=== PATIENT | male | born 1945 | race Caucasian/White ===

== ENCOUNTER 2020-11-05 17:18 | Emergency (ER) | payer SELFPAY ==
--- NOTE | 2020-11-05 19:24 | RAD REPORT ---
EXAM DESCRIPTION: CT - Stone Protocol - 11/05/2020 7:01 pm CLINICAL HISTORY: Flank pain. FLANK PAIN COMPARISON: No comparisons TECHNIQUE: Axial images were obtained without oral or IV contrast. Lack of contrast limits solid org an and vascular assessment. The [id number] spans the entirety of the system partially obscuring uppermost abdomen and lung bases. Coronal reformatted images were obtained and reviewed. All CT scans are performed using dose optimization technique as appropriate and may include automated exposure control or mA/KV adjustment according to patient size. FINDINGS: Severe emphysematous changes are present in both lung bases. Small hiatal hernia is presen t. Imaged portions of the liver and spleen show no suspicious findings on non-contrast imaging. Pancreas appears unremarkable.Right adrenal gland is normal. Left adrenal gland contains a 3 cm mass, nonspec ific. No pathologic lymphadenopathy in the abdomen or pelvis. Large right renal cyst is present measuring 6 cm. Stones are present in the calices of both kidneys. There is mild left hydronephrosis caused by a 6 mm stone at the left UPJ. The transverse colon appears thickened suggesting a colitis. Ascending colon appears distended with a ir including the cecum which measures up to 8 cm. Sigmoid diverticulosis is present without diverticu litis. The appendix is not identified as a discrete structure, however, no secondary findings of appe ndicitis are identified. Aortoiliac atherosclerosis. Moderate lumbar degenerative changes. IMPRESSION: 6 mm stone left UPJ resulting in mild left hydronephrosis. Thickening of the transverse colon is present suggesting a moderate colitis. Suggest followup colonos copy not recently performed. Nonspecific 3 cm left adrenal mass. Nonemergent follow-up MRI adrenal protocol would be recommended.
[2020-11-05] MEDS ORDERED: MORPHINE 4 MG/ML SYR ONE (22:02)
[2020-11-05] MEDS ORDERED: ONDANSETRON 4 MG/2 ML VIAL ONE (22:02)
[2020-11-05 22:03] LABS: Basophils % 0.2 % (0-1.3); Hematocrit 50.2 % (39.6-49.0); Lymphocytes % 6.4 % (15.3-44.8); MPV 9.5 fL (7.6-11.3); RBC Red Blood Cell Count 5.64 M/uL (4.33-5.43)
[2020-11-05] MEDS ORDERED: METRONIDAZOLE 500mg IVPB 500 MG/100 ML BAG IV ONE (22:03)
[2020-11-05] MEDS ORDERED: CEFTRIAXONE/SWI 1gm 1 GM/10 ML SYR ONE (22:03)
[2020-11-05] MEDS ORDERED: TAMSULOSIN 0.4 MG SR CAP ONE (22:03)
[2020-11-05] MEDS ORDERED: NA CHLORIDE 0.9% 1,000 ML ONE ×2 (22:03→23:21)
[2020-11-05 22:06] LABS: Bilirubin Direct 0.3 mg/dL (0-0.2); Bilirubin Total 1.3 mg/dL (0.2-1.0); Potassium 4.1 mmol/L (3.5-5.1)
[2020-11-05 22:52] LABS: Blood Morphology Comment NOT SEEN (NOT SEEN); Platelet Estimate ADEQ
[2020-11-06 00:28] LABS: Urine Blood 3+ (Negative); Urine Glucose Negative (Negative); Urine Protein 2+ (Negative); Urine Specific Gravity >=1.030 (1.005-1.030)
--- NOTE | 2020-11-06 00:36 | ER ---
Nurse's Notes [facility] Francoise Name: Chele Childress Age: 75 yrs Sex: Male : 1945 Arrival Date: 11/05/2020 Time: 17:38 Bed 23 Private MD: Diagnosis: Noninfective gastroenteritis and colitis, unspecified;Calculus of ureter-left Presentation: 11/05 17:59 Chief complaint: EMS states: Left flank pain x 2 days, cough and SOB started today, hx jl7 of kidney stones. Coronavirus screen: Client denies travel out of the [place] in the last 14 days. At this time, the client does not indicate any symptoms associated with coronavirus-19. Ebola Screen: No symptoms or risks identified at this time. Initial Sepsis Screen: Does the patient meet any 2 criteria? No. Patient's initial sepsis screen is negative. Does the patient have a suspected source of infection? No. Patient's initial sepsis screen is negative. Risk Assessment: Do you want to hurt yourself or someone else? Patient reports no desire to harm self or others. Onset of symptoms was November 04, 2020. Care prior to arrival: None. 17:59 Method Of Arrival: EMS: [facility] jl7 17:59 Acuity: ADONAY 3 jl7 Historical: - Allergies: 18:01 No Known Allergies; jl7 - Home Meds: 18:01 None [Active]; jl7 - PMHx: 18:03 Kidney stone; jl7 - PSHx: 18:01 Tonsillectomy; jl7 - Immunization history:: Adult Immunizations up to date, Client reports having NOT received the Covid vaccine. - Social history:: Smoking status: Patient reports the use of cigarette tobacco products, smokes one-half pack cigarettes per day. - Family history:: not pertinent, pertinent for No immediate family members are acutely ill, Mother has/had. Screenin:50 Abuse screen: Denies threats or abuse. Denies injuries from another. Nutritional ld1 screening: No deficits noted. Tuberculosis screening: No symptoms or risk factors identified. Fall Risk None identified. Assessment: 21:50 General: Appears in no apparent distress. comfortable, Behavior is calm, cooperative, ld1 appropriate for age. Pain: Complains of pain in low back area Pain does not radiate. Pain currently is 7 out of 10 on a pain scale. Quality of pain is described as throbbing, Pain began gradually, Is continuous. Neuro: Level of Consciousness is awake, alert, obeys commands, Oriented to person, place, time, situation. Cardiovascular: Capillary refill < 3 seconds Patient's skin is warm and dry. Respiratory: Airway is patent Respiratory effort is even, unlabored, Respiratory pattern is regular, symmetrical. GI: Abdomen is flat, non-distended, Bowel sounds present X 4 quads. Abd is soft Abdomen is tender to palpation in right lower quadrant and left lower quadrant. : No signs and/or symptoms were reported regarding the genitourinary system. EENT: No signs and/or symptoms were reported regarding the EENT system. Derm: No signs and/or symptoms reported regarding the dermatologic system. Musculoskeletal: No signs and/or symptoms reported regarding the musculoskeletal system. 22:39 Reassessment: Patient appears in no apparent distress at this time. Patient and/or ld1 family updated on plan of care and expected duration. Pain level reassessed. Patient is alert, oriented x 3, equal unlabored respirations, skin warm/dry/pink. 11/06 00:31 Reassessment: Patient appears in no apparent distress at this time. Patient and/or ld1 family updated on plan of care and expected duration. Pain level reassessed. Patient is alert, oriented x 3, equal unlabored respirations, skin warm/dry/pink. Vital Signs: 11/05 17:59 BP 159 / 78; Pulse 82; Resp 25; Temp 98.6; Pulse Ox 98% on R/A; Weight 86.18 kg; Height jl7 5 ft. 11 in. (180.34 cm); Pain 7/10; 21:50 BP 146 / 72; Pulse 80; Resp 23; Pulse Ox 100% ; ld1 11/06 00:32 BP 138 / 76; Pulse 84; Resp 18; Pulse Ox 100% ; ld1 11/05 17:59 Body Mass Index 26.50 (86.18 kg, 180.34 cm) jl7 ED Course: 11/05 17:38 Patient arrived in ED. rg4 18:01 Triage completed. jl7 18:01 Arm band placed on right wrist. jl7 19:02 CT Stone Protocol In Process Unspecified. EDMS 21:12 Inserted saline lock: 20 gauge in right antecubital area, using aseptic technique. bb Blood collected. 21:13 Sal Bledsoe MD is Attending Physician. ma2 21:35 Rena Grajeda, SHAHEEN is Primary Nurse. ld1 21:50 Patient has correct armband on for positive identification. Placed in gown. Bed in low ld1 position. Call light in reach. Side rails up X2. 11/06 00:32 No provider procedures requiring assistance completed. IV discontinued, intact, ld1 bleeding controlled, No redness/swelling at site. 00:36 Jame Dempsey MD is Referral Physician. ma2 Administered Medications: 11/05 22:36 Drug: Rocephin (cefTRIAXone) 1 grams Route: IV; Rate: calculated rate; Site: right ld1 antecubital; 22:36 Drug: Flagyl (metroNIDAZOLE) 500 mg Volume: 100 ml; Route: IVPB; Rate: 200 ml/hr; ld1 Infused Over: 30 mins; Site: right antecubital; 22:36 Drug: Flomax (tamsulosin) 0.4 mg Route: PO; ld1 22:37 Drug: NS 0.9% 1000 ml Route: IV; Rate: 1 bolus; Site: right antecubital; ld1 22:37 Drug: Zofran (Ondansetron) 4 mg Route: IVP; Site: right antecubital; ld1 22:37 Drug: morphine 4 mg Route: IVP; Site: right antecubital; ld1 23:02 Drug: NS 0.9% 1000 ml Route: IV; Rate: 1 bolus; Site: right antecubital; ld1 Outcome: 11/06 00:32 Discharged to home ambulatory. ld1 Condition: stable Discharge instructions given to patient, Instructed on discharge instructions, follow up and referral plans. medication usage, Demonstrated understanding of instructions, follow-up care, medications. 00:36 Discharge ordered by . ma2 00:44 Patient left the ED. ld1 Signatures: Dispatcher [employer] EDMS Jackie Moss RN RN bb Garcia, Rubi rg4 Patricio Carney RN RN jl7 Sal Bledsoe MD MD ma2 Dibbern, Lauren, SHAHEEN RN ld1 Corrections: (The following items were deleted from the chart) 11/05 18:01 18:01 PSHx: None; jl7 jl7 18:03 18:01 PMHx: None; jl7 jl7
--- NOTE | 2020-11-06 00:36 | EDPHYS ---
Physician Documentation [facility] Name: Chele Childress Age: 75 yrs Sex: Male : 1945 Arrival Date: 11/05/2020 Time: 17:38 Bed 23 Private MD: ED Physician Sal Bledsoe HPI: 11/05 23:15 This 75 yrs old Male presents to ER via EMS with complaints of Possible ma2 Kidney Stone. 23:15 The patient complains of pain in the left mid back. Onset: The symptoms/episode ma2 began/occurred gradually, just prior to arrival, 1 day(s) ago. Associated signs and symptoms: Pertinent negatives: dysuria, fever, urinary frequency, headache, hematuria, nausea. Severity of pain: At its worst the pain was moderate in the emergency department the pain is unchanged. The patient has experienced similar episodes in the past. Historical: - Allergies: 18:01 No Known Allergies; jl7 - Home Meds: 18:01 None [Active]; jl7 - PMHx: 18:03 Kidney stone; jl7 - PSHx: 18:01 Tonsillectomy; jl7 - Immunization history:: Adult Immunizations up to date, Client reports having NOT received the Covid vaccine. - Social history:: Smoking status: Patient reports the use of cigarette tobacco products, smokes one-half pack cigarettes per day. - Family history:: not pertinent, pertinent for No immediate family members are acutely ill, Mother has/had. ROS: 23:15 Constitutional: Negative for fever, chills, and weight loss. ma2 23:15 All other systems are negative. Exam: 23:15 Constitutional: This is a well developed, well nourished patient who is awake, alert, ma2 and in no acute distress. Head/Face: Normocephalic, atraumatic. Eyes: Pupils equal round and reactive to light, extra-ocular motions intact. Lids and lashes normal. Conjunctiva and sclera are non-icteric and not injected. Cornea within normal limits. Periorbital areas with no swelling, redness, or edema. ENT: Nares patent. No nasal discharge, no septal abnormalities noted. Tympanic membranes are normal and external auditory canals are clear. Oropharynx with no redness, swelling, or masses, exudates, or evidence of obstruction, uvula midline. Mucous membranes moist. Neck: Trachea midline, no thyromegaly or masses palpated, and no cervical lymphadenopathy. Supple, full range of motion without nuchal rigidity, or vertebral point tenderness. No Meningismus. Chest/axilla: Normal chest wall appearance and motion. Nontender with no deformity. No lesions are appreciated. Cardiovascular: Regular rate and rhythm with a normal S1 and S2. No gallops, murmurs, or rubs. Normal PMI, no JVD. No pulse deficits. Respiratory: Lungs have equal breath sounds bilaterally, clear to auscultation and percussion. No rales, rhonchi or wheezes noted. No increased work of breathing, no retractions or nasal flaring. Abdomen/GI: Soft, non-tender, with normal bowel sounds. No distension or tympany. No guarding or rebound. No evidence of tenderness throughout. Back: No spinal tenderness. No costovertebral tenderness. Full range of motion. Skin: Warm, dry with normal turgor. Normal color with no rashes, no lesions, and no evidence of cellulitis. MS/ Extremity: Pulses equal, no cyanosis. Neurovascular intact. Full, normal range of motion. Neuro: Awake and alert, GCS 15, oriented to person, place, time, and situation. Cranial nerves II-XII grossly intact. Motor strength 5/5 in all extremities. Sensory grossly intact. Cerebellar exam normal. Normal gait. Vital Signs: 17:59 BP 159 / 78; Pulse 82; Resp 25; Temp 98.6; Pulse Ox 98% on R/A; Weight 86.18 kg; Height jl7 5 ft. 11 in. (180.34 cm); Pain 7/10; 21:50 BP 146 / 72; Pulse 80; Resp 23; Pulse Ox 100% ; ld1 11/06 00:32 BP 138 / 76; Pulse 84; Resp 18; Pulse Ox 100% ; ld1 11/05 17:59 Body Mass Index 26.50 (86.18 kg, 180.34 cm) jl7 MDM: 11/05 21:13 Patient medically screened. ma2 11/06 00:35 Differential diagnosis: nephrolithiasis, pyelonephritis, kidney stone. Data reviewed: ma2 vital signs, nurses notes. Counseling: I had a detailed discussion with the patient and/or guardian regarding: the historical points, exam findings, and any diagnostic results supporting the discharge/admit diagnosis, the presence of at least one elevated blood pressure reading (>120/80) during this emergency department visit, the need for outpatient follow up. Response to treatment: the patient's symptoms have markedly improved after treatment. 11/05 21:19 Order name: Basic Metabolic Panel; Complete Time: 22:24 ma2 11/05 21:19 Order name: CBC with Diff; Complete Time: 23:35 ma2 11/05 21:19 Order name: Hepatic Function; Complete Time: 22:24 ma2 11/05 21:19 Order name: Lipase; Complete Time: 22:24 ma2 11/05 22:16 Order name: Manual Differential; Complete Time: 23:35 EDMS 11/05 18:03 Order name: CT Stone Protocol; Complete Time: 20:11 jl7 11/06 00:28 Order name: Urine Dipstick-Ancillary EDNJ 11/06 00:29 Order name: Urine Dipstick-Ancillary EDNJ 11/05 21:19 Order name: IV Saline Lock; Complete Time: 21:51 ma2 11/05 21:19 Order name: Labs collected and sent; Complete Time: 21:51 ma2 11/05 21:19 Order name: Urine Dipstick-Ancillary (obtain specimen); Complete Time: 00:33 ma2 Administered Medications: 11/05 22:36 Drug: Rocephin (cefTRIAXone) 1 grams Route: IV; Rate: calculated rate; Site: right ld1 antecubital; 22:36 Drug: Flagyl (metroNIDAZOLE) 500 mg Volume: 100 ml; Route: IVPB; Rate: 200 ml/hr; ld1 Infused Over: 30 mins; Site: right antecubital; 22:36 Drug: Flomax (tamsulosin) 0.4 mg Route: PO; ld1 22:37 Drug: NS 0.9% 1000 ml Route: IV; Rate: 1 bolus; Site: right antecubital; ld1 22:37 Drug: Zofran (Ondansetron) 4 mg Route: IVP; Site: right antecubital; ld1 22:37 Drug: morphine 4 mg Route: IVP; Site: right antecubital; ld1 23:02 Drug: NS 0.9% 1000 ml Route: IV; Rate: 1 bolus; Site: right antecubital; ld1 Disposition Summary: 11/06/20 00:36 Discharge Ordered Location: Home ma2 Condition: Stable ma2 Diagnosis - Noninfective gastroenteritis and colitis, unspecified ma2 - Calculus of ureter - left ma2 Followup: ma2 - With: Jame Dempsey MD - When: Tomorrow - Reason: If symptoms return Discharge Instructions: - Discharge Summary Sheet ma2 - Kidney Stones ma2 Forms: - Medication Reconciliation Form ma2 - Thank You Letter ma2 - Antibiotic Education ma2 - Prescription Opioid Use ma2 Prescriptions: - Flomax 0.4 mg Oral capsule - take 1 capsule by ORAL route once daily 1/2 hour following the same meal each ma2 day; 30 capsule; Refills: 0, Product Selection Permitted - Flagyl 500 mg Oral Tablet - take 1 tablet by ORAL route every 12 hours for 7 days; 14 tablet; Refills: 0, ma2 Product Selection Permitted - Cipro 500 mg Oral Tablet - take 1 tablet by ORAL route every 12 hours for 7 days; 14 tablet; Refills: 0, ma2 Product Selection Permitted - Diclofenac Sodium 75 mg Oral Tablet Sustained Release - take 1 tablet by ORAL route 2 times per day; 30 tablet; Refills: 0, Product ma2 Selection Permitted Signatures: Dispatcher [employer] Renae Serna, FELIPAC BOB-Patricio Mojica RN RN jl7 Sal Bledsoe MD MD ma2 Rena Grajeda RN RN ld1 Corrections: (The following items were deleted from the chart) 18:01 18:01 PSHx: None; jl7 jl7 18:03 18:01 PMHx: None; wendy jl7
[2020-11-06 01:03] VITALS: TEMP 98.6
[2020-11-06 01:05] VITALS: O2SAT 100
[2020-11-06 01:07] VITALS: BP 138/76
== END 2020-11-06 00:44 | disposition home or self-care (01) ==
LOC: ER 17:18
DX: N20.1 Calculus of ureter (principal); K52.9 Noninfective gastroenteritis and colitis, unspecified; F17.210 Nicotine dependence, cigarettes, uncomplicated
CPT/HCPCS: 36415; 74176; 76377; 80048; 80076; 81003; 83690; 85025; 96374; 96375; 99284; J0696; J2405; J7030